=== PATIENT | female | born 1975 | race Caucasian/White ===

== ENCOUNTER → 2019-04-23 14:49 | Outpatient (CLI) | payer BC, SELFPAY ==
--- NOTE | ~2019-04-23 | US_ITS ---
EXAMINATION: US pelvic complete EXAM DATE: 04/23/2019 15:12 INDICATION: Right-sided pelvic pain, intermittent for several months. TECHNIQUE: Pelvic transabdominal sonogram was performed. There are multiple grayscale and Doppler im ages available for interpretation. There is no prior study for comparison. FINDINGS: Uterus measures 9.3 x 3.7 x 6.4 cm, and is morphologically normal. Endometrial stripe dayanara sures 6 mm, within normal limits. There is no free pelvic fluid. Right adnexa: The ovary measures 3.4 x 2.7 x 2.4 cm and is morphologically normal. Ovarian vascular f low confirmed. Left adnexa: The ovary measures 2.8 x 1.5 x 2.5 cm and is morphologically normal. Ovarian vascular fl ow confirmed. IMPRESSION: 1. Unremarkable pelvic ultrasound exam. Reviewed, dictated and finalized at location A. S BELT SANDER
== END ==
PROVIDERS: PCP Internal Medicine; Visit Provider Nurse Practitioner
DX: R10.2 Pelvic and perineal pain (principal)
CPT/HCPCS: 76856

== ENCOUNTER 2019-08-02 08:05 | Outpatient (CLI) | payer BC, SELFPAY ==
--- NOTE | ~2019-08-02 | US_ITS ---
EXAMINATION: US right upper quadrant DATE: 08/02/2019 08:43 INDICATION: Right upper quadrant abdominal pain. TECHNIQUE: Multiple grayscale and Doppler ultrasound images of the abdomen were obtained. COMPARISON: Ultrasound 04/30/2018 FINDINGS: The visualized portions of the head and body of the pancreas are normal. The liver is jonathan l without focal lesion. There is normal flow in main portal vein. The gallbladder is normal in size a nd contains a 3 mm polyp, likely benign and needing no follow-up. No gallstones, gallbladder wall thi ckening, or sonographic Myers sign. The common duct is normal and measures 3 mm. IMPRESSION: 1. No etiology for the patient's symptoms. Reviewed, dictated and finalized at location A.
[2019-08-02 10:49] LABS: Folic Acid 13.5 ng/mL (2.76->20)
[2019-08-02 11:16] LABS: Vitamin D 25 Hydroxy 39.1 ng/mL
[2019-08-08 01:37] LABS: Vitamin B6 17.5 ng/mL (2.1-21.7)
== END 2019-08-02 08:06 | disposition home or self-care (01) ==
PROVIDERS: PCP Internal Medicine; Visit Provider Internal Medicine Gastroenterology
DX: R10.11 Right upper quadrant pain (principal); R93.2 Abnormal findings on diagnostic imaging of liver and biliary tract
CPT/HCPCS: 36415; 76705; 82306; 82607; 82746; 84207

== ENCOUNTER 2019-08-16 09:57 | Outpatient (CLI) | payer BC, SELFPAY ==
--- NOTE | ~2019-08-16 | MM_ITS ---
EXAMINATION: MM screening [facility] BI w ignacia HISTORY: Screening mammogram TECHNIQUE: Craniocaudal and mediolateral oblique 3-D tomosynthesis images were obtained and synthetic 2-D images were generated. CAD analysis was submitted and interpreted. COMPARISON: 04/02/2015, 08/09/2012 BREAST PARENCHYMAL COMPOSITION: The breasts are extremely dense, which lowers the sensitivity of mamm ography. FINDINGS: RIGHT BREAST: There is no evidence of suspicious mass, calcification, or architectural distortion to suggest malignancy. There has been no significant interval change. LEFT BREAST: An asymmetry is present in the posterior third of the outer breast on the craniocaudal v iew 6.5 cm from the nipple. IMPRESSION: 1. Left breast asymmetry on the craniocaudal view. 2. Additional mammographic views and possible breast ultrasound are recommended. BI-RADS Category 0: Incomplete: Needs additional imaging evaluation. Reviewed, dictated and finalized at location A. IMPRESSION: 1. Left breast asymmetry on the craniocaudal view. 2. Additional mammographic views and possible breast ultrasound are recommended . BI-RADS Category 0: Incomplete: Needs additional imaging evaluation.
== END 2019-08-16 09:58 | disposition home or self-care (01) ==
LOC: ANHIMG 10:00
PROVIDERS: PCP Internal Medicine; Visit Provider Obstetrics & Gynecology Gynecology
DX: Z12.31 Encounter for screening mammogram for malignant neoplasm of breast (principal); R92.8 Other abnormal and inconclusive findings on diagnostic imaging of breast
CPT/HCPCS: 77063; 77067

== ENCOUNTER 2019-09-05 11:33 | Outpatient (CLI) | payer BC, SELFPAY ==
--- NOTE | ~2019-09-05 | MM_ITS ---
EXAMINATION: MM diagnostic mammo unilat LT HISTORY: Left breast asymmetry on screening mammogram TECHNIQUE: Additional 3-D tomosynthesis images of the left breast were performed and synthetic 2-D im ages were generated. CAD analysis was submitted and interpreted. COMPARISON: 08/16/2019, 04/02/2015, 08/09/2012 FINDINGS: No persistent asymmetry is identified with spot compression views of the left breast. There is no evidence of suspicious mass, calcification, or architectural distortion to suggest malignancy . There has been no suspicious interval change. IMPRESSION: 1. No mammographic evidence of malignancy. 2. Recommend routine screening mammography in one year. BI-RADS Category 1: Negative Reviewed, dictated and finalized at location A.
== END 2019-09-05 11:34 | disposition home or self-care (01) ==
LOC: ANHIMG 11:34
PROVIDERS: PCP Internal Medicine; Visit Provider Obstetrics & Gynecology Gynecology
DX: R92.8 Other abnormal and inconclusive findings on diagnostic imaging of breast (principal)
CPT/HCPCS: 77065

== ENCOUNTER → 2020-07-23 14:43 | Outpatient (CLI) | payer BC, SELFPAY ==
--- NOTE | ~2020-07-23 | US_ITS ---
EXAMINATION: US venous doppler [facility] DATE: 07/23/2020 15:21 INDICATION: Left lower limb swelling TECHNIQUE: Grayscale ultrasound images without and with compression and Doppler ultrasound images of the left lower extremity veins were obtained. COMPARISON: None. FINDINGS: The visualized portions of left common femoral vein, profunda (deep) femoral vein, femoral vein, popl iteal vein, peroneal veins, posterior tibial veins, gastrocnemius vein, soleus vein and greater saphe nous vein outflow are patent. IMPRESSION: 1. No deep venous thrombosis in the left lower limb. Reviewed, dictated and finalized at location A.
== END ==
PROVIDERS: PCP Internal Medicine; Visit Provider Nurse Practitioner
DX: M79.89 Other specified soft tissue disorders (principal)
CPT/HCPCS: 93971

== ENCOUNTER 2020-09-02 11:01 | Outpatient (CLI) | payer BC, SELFPAY ==
--- NOTE | ~2020-09-02 | US_ITS ---
EXAMINATION: US venous doppler [facility] EXAM DATE: 09/02/2020 11:32 INDICATION: Left lower extremity edema. TECHNIQUE: Multiple grayscale, color flow and Doppler images of the left lower extremity deep venous system were obtained and reviewed. Comparison is made to prior examination from 07/23/2020. FINDINGS: The left common femoral, femoral and profunda veins demonstrate normal color flow, respirat ory variation, augmentation and compressibility. Compressibility, color flow confirmed within the le ft popliteal, posterior tibial, peroneal, and greater saphenous veins. IMPRESSION: 1. No left lower extremity deep venous thrombosis. Reviewed, dictated and finalized at location B.
== END 2020-09-02 11:02 | disposition home or self-care (01) ==
PROVIDERS: PCP Internal Medicine; Visit Provider Internal Medicine Cardiovascular Disease
DX: R60.0 Localized edema (principal)
CPT/HCPCS: 93971

== ENCOUNTER → 2022-05-10 14:16 | Outpatient (CLI) | payer BC, SELFPAY ==
--- NOTE | ~2022-05-10 | MR_ITS ---
EXAMINATION: MR brain/brain stem wo/w con DATE: 05/10/2022 15:10 INDICATION: Memory loss TECHNIQUE: Magnetic resonance imaging (MRI) of the brain and brainstem was performed without and with 10 mL Multihance intravenous contrast. Sequences included sagittal and axial T1-weighted SE, axial d iffusion-weighted FS SE, axial T2*-weighted GRE, axial 3D SWAN, axial T2-weighted FLAIR, and axial T2 -weighted FSE. Postcontrast axial and coronal T1-weighted SE was obtained. Apparent diffusion coeffic ient (ADC) maps were created. COMPARISON: Brain MR dated 09/04/2008 FINDINGS: There are no areas of restricted diffusion to suggest acute infarction. No intracranial hemorrhage or abnormal intracranial mass lesion. There are no intraparenchymal signal abnormalities seen on the ot her pulse sequences. The ventricles are symmetric and normal in size. There are no abnormal extra-axi al fluid collections. Flow voids are seen in the cerebral arteries on the T2-weighted sequences consi stent with their expected patency. Unchanged large mucous retention cyst in the left maxillary sinus. Visualized orbits and soft tissues are unremarkable. There are no areas of abnormal enhancement on t he post contrast images. IMPRESSION: 1. 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 Otherwise normal brain MRI. Reviewed, dictated and finalized at location A. 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 Otherwise normal brain M RI.
== END ==
PROVIDERS: PCP Internal Medicine; Visit Provider Nurse Practitioner
DX: R41.3 Other amnesia (principal); J32.0 Chronic maxillary sinusitis
CPT/HCPCS: 70553; A9577

== ENCOUNTER → 2022-06-30 13:18 | Outpatient (CLI) | payer BC, SELFPAY ==
--- NOTE | ~2022-06-30 | MM_ITS ---
EXAMINATION: MM screening [facility] BI w ignacia HISTORY: Screening mammogram TECHNIQUE: Craniocaudal and mediolateral oblique 3-D tomosynthesis images were obtained and synthetic 2-D images were generated. CAD analysis was submitted and interpreted. COMPARISON: 09/05/2019 diagnostic left mammogram 08/16/2019 bilateral screening mammogram BREAST PARENCHYMAL COMPOSITION: The breasts are extremely dense, which lowers the sensitivity of mamm ography. FINDINGS: Occasional bilateral benign microcalcifications. There is no evidence of suspicious mass, c alcification, or architectural distortion to suggest malignancy in either breast. There has been no s uspicious interval change. IMPRESSION: 1. No mammographic evidence of malignancy. 2. Recommend routine screening mammography in one year. BI-RADS Category 2: Benign finding(s). Reviewed, dictated and finalized at location A.
== END ==
PROVIDERS: PCP Internal Medicine; Visit Provider Obstetrics & Gynecology Gynecology
DX: Z12.31 Encounter for screening mammogram for malignant neoplasm of breast (principal)
CPT/HCPCS: 77063; 77067

== ENCOUNTER → 2023-05-04 14:23 | Outpatient (CLI) | payer BC, SELFPAY ==
--- NOTE | ~2023-05-04 | XR_ITS ---
XR hip RT 2V w AP pelvis DATE: 05/04/2023 14:39 INDICATION: Enhancing injury. Low back and right hip pain TECHNIQUE: AP pelvis. AP and lateral views of right hip COMPARISON: None FINDINGS: No pelvic fracture or bone destruction. The pubic symphysis and sacroiliac joints are intac t. Hip joint spaces are symmetric and well preserved. No fracture, dislocation, avascular necrosis or bone destruction of the right hip. IMPRESSION: Negative Reviewed, dictated and finalized at location L. 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
--- NOTE | ~2023-05-04 | XR_ITS ---
XR lumbar spine min 4V DATE: 05/04/2023 14:39 INDICATION: Dancing injury. Low back, right hip pain TECHNIQUE: AP, lateral, bilateral oblique and coned lateral lumbosacral views COMPARISON: None FINDINGS: Normal alignment of the lumbar spine. No fracture or bone destruction, spondylolysis or spo ndylolisthesis. The included lower thoracic and lumbar pedicles are intact. Lumbar and lumbosacral in terspaces are well preserved. The sacroiliac joints are intact. IMPRESSION: No significant abnormality Reviewed, dictated and finalized at location L. 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
== END ==
PROVIDERS: PCP Nurse Practitioner; Visit Provider Nurse Practitioner
DX: M54.50 Low back pain, unspecified (principal); M25.551 Pain in right hip
CPT/HCPCS: 72110; 73502

== ENCOUNTER 2023-11-30 13:46 | Outpatient (CLI) | payer BC, SELFPAY ==
--- NOTE | ~2023-11-30 | MM_ITS ---
EXAMINATION: MM screening [facility] BI w ignacia HISTORY: Screening mammogram TECHNIQUE: Craniocaudal and mediolateral oblique 3-D tomosynthesis images were obtained and synthetic 2-D images were generated. CAD analysis was submitted and interpreted. COMPARISON: 06/30/2022, 08/16/2019 BREAST PARENCHYMAL COMPOSITION:Dense: The breasts are heterogeneously dense, which may obscure small masses. FINDINGS: No suspicious mass, calcification, or architectural distortion are identified in either tati ast to suggest malignancy. There has been no suspicious interval change. IMPRESSION: No mammographic evidence of malignancy. Recommend routine screening mammography in one year. BI-RADS Category 1: Negative Reviewed, dictated and finalized at location .
== END 2023-11-30 13:47 | disposition home or self-care (01) ==
LOC: MICIMG 13:47
PROVIDERS: PCP Internal Medicine; Visit Provider Obstetrics & Gynecology Gynecology
DX: Z12.31 Encounter for screening mammogram for malignant neoplasm of breast (principal)
CPT/HCPCS: 77063; 77067

== ENCOUNTER 2024-06-20 09:22 | Outpatient (CLI) | payer BC, SELFPAY ==
--- NOTE | ~2024-06-20 | US_ITS ---
Limited Abdominal Sonogram: Real-time sonographic imaging of the right upper quadrant was performed. Clinical History: Abdominal pain Findings: The liver appears normal with no evidence of mass lesion or bile duct dilatation. Main por dalia vein demonstrates normal direction of flow. The gallbladder is well distended, and demonstrate 3 mm gallbladder wall polyp. The common bile duct measures 3 mm. The visualized pancreas, aorta, and I VC are unremarkable. Right kidney unremarkable. Impression: 3 mm gallbladder wall polyp. Reviewed, dictated and finalized at location M. Impression: 3 mm gallbladder wall polyp.
== END 2024-06-20 09:23 | disposition home or self-care (01) ==
LOC: GOSHIMG 09:23
PROVIDERS: PCP Internal Medicine; Visit Provider Student in an Organized Health Care Education/Training Program
DX: R10.9 Unspecified abdominal pain (principal); K82.4 Cholesterolosis of gallbladder
CPT/HCPCS: 76705

== ENCOUNTER 2024-06-24 09:14 | Outpatient (CLI) | payer BC, SELFPAY ==
--- NOTE | ~2024-06-24 | XR_ITS ---
Left Shoulder Technique: AP and scapular Y views were obtained. Clinical History: Pain Findings: No fracture or dislocation is seen. Osseous alignment is anatomic. The glenohumeral and acr omioclavicular joint spaces are preserved. Soft tissues are unremarkable. Impression: Unremarkable left shoulder radiographs. Reviewed, dictated and finalized at [facility]. Impression: Unremarkable left shoulder radiographs.
== END 2024-06-24 09:15 | disposition home or self-care (01) ==
LOC: GOSHIMG 09:14
PROVIDERS: PCP Orthopaedic Surgery; Visit Provider Clinical Nurse Specialist
DX: M25.512 Pain in left shoulder (principal)
CPT/HCPCS: 73030

== ENCOUNTER 2024-08-01 09:24 | Outpatient (CLI) | payer BC, SELFPAY ==
--- NOTE | ~2024-08-01 | MR_ITS ---
MRI of the left shoulder Technique: Axial proton-density fat-sat images, coronal proton density fat-sat and T2 fat-sat images, and sagittal T1-weighted and T2 fat-sat images were acquired. Clinical History: Pain Findings: No significant degenerative changes AC joint. Coracoclavicular, coracoacromial, and coracoh umeral ligaments appear intact. Supraspinatus and infraspinatus tendons are intact, without partial or full-thickness tear. There is minimal tendinosis. Subscapularis tendon is intact. Tendon of the long head of the biceps is intact. No labral tear identified. There is thickening and increased signal inferior glenohumeral ligament. There is minimal glenohumera l joint effusion. No degenerative changes glenohumeral joint. No fluid distention of the subacromial/ subdeltoid bursa. No muscle atrophy or edema. Impression: Thickening and increased signal of the inferior glenohumeral ligament suggests adhesive capsulitis. Reviewed, dictated and finalized at location . Impression: Thickening and increased signal of the inferior glenohumeral ligament suggests adhesive capsulitis.
== END 2024-08-01 09:25 | disposition home or self-care (01) ==
LOC: GOSHIMG 09:24
PROVIDERS: PCP Internal Medicine; Visit Provider Orthopaedic Surgery
DX: M24.212 Disorder of ligament, left shoulder (principal)
CPT/HCPCS: 73221

== ENCOUNTER 2025-02-25 13:04 | Outpatient (CLI) | payer BC, SELFPAY ==
--- NOTE | ~2025-02-25 | DEXA_ITS ---
Bone Density Report Name: JAYSON BURT Age: 49 Sex: Female Ethnicity: White Date of : 1975 Indication: postmenopausal; inflammatory bowel disease; history of glucocorticoids; prior fracture; Referring Provider: LUBNA RICHARD Study: Bone densitometry was performed. Exam Date: February 25, 2025 Accession number: [id number] Bone Density: Region BMD T-score Z-score Classification AP Spine(L1-L4) 0.863 -1.7 -1.0 Osteopenia Femoral Neck (Left) 0.605 -2.2 -1.5 Osteopenia Total Hip (Left) 0.759 -1.5 -1.1 Osteopenia Femoral Neck (Right) 0.599 -2.3 -1.6 Osteopenia Total Hip (Right) 0.746 -1.6 -1.2 Osteopenia Total Hip Mean 0.753 -1.6 -1.2 Osteopenia World Health Organization criteria for BMD impression classify patients as: Normal (T-score at or above -1.0), Osteopenia (T-score between -1.0 and -2.5), or Osteoporosis (T-score at or below -2.5). 10-year Fracture Risk(1): Major Osteoporotic Fracture 16% Hip Fracture 3.8% Reported Risk Factors: [place] (), Neck BMD=0.599, BMI=22.4, previous fracture, glucocorticoids (1) FRAX(R) Version 3.08. Fracture probability calculated for an untreated patient. Fracture probability may be lower if the patient has received treatment. Clinical Information Provided by Patient: Has had a low trauma fracture Has taken Glucocorticoids Has used the following medications: Vitamin D, Calcium Has the following medical conditions: Inflammatory bowel diseases Patient maximum height was 64.5 Menopause Age: 49 No regular weight bearing exercise Does not regularly consume dairy products Onset of menses at age 14 Number of children 2 Impression: The patient has low bone mass, based on the Right Femoral Neck T-score. The patient has an estimated ten-year risk of hip fracture of 3.8% and an estimated ten-year risk of major fracture of 16%, based on the WHO FRAX algorithm. The patient has risk factors, including: previous fracture, history of glucocorticoid therapy. Discussion: BONE DENSITY IS LOW AT ONE OR MORE SKELETAL SITES. THE PATIENT'S BMD AND CLINICAL RISK FACTORS CONTRIBUTE TO THIS PATIENT'S INCREASED RISK OF FRACTURE. This patient's lowest T-score is low at one or more skeletal sites. It meets the World Health Organization's (WHO) criteria for ?low bone mass? (T-score between -1.0 and -2.5). The patient's 10-year risk of hip fracture as calculated by FRAX exceeds the threshold where pharmacological therapy is recommended by the National Osteoporosis Foundation (NOF). However, all treatment decisions require clinical judgment and consideration of individual patient factors, including patient preferences, comorbidities, previous drug use, risk factors not captured in the FRAX model (e.g., frailty, falls, vitamin D deficiency, increased bone turnover, interval significant decline in bone density) and possible under or overestimation of fracture risk by FRAX. The patient should follow a healthful lifestyle (good nutrition with adequate calcium and vitamin D, and appropriate weight-bearing exercise). Follow-Up: Consider a repeat BMD and Vertebral Fracture Assessment (VFA) exam in 2 years or sooner if medically necessary, to reassess this patient's status. Reported by: CYNTHIA on 02/25/2025 1:27:00 PM. Reviewed, dictated and finalized at location A.
== END 2025-02-25 13:05 | disposition home or self-care (01) ==
LOC: MICIMG 13:05
PROVIDERS: PCP Internal Medicine; Visit Provider Obstetrics & Gynecology Gynecology
DX: Z78.0 Asymptomatic menopausal state (principal); M85.88 Other specified disorders of bone density and structure, other site; M85.852 Other specified disorders of bone density and structure, left thigh; M85.851 Other specified disorders of bone density and structure, right thigh
CPT/HCPCS: 77080